=== PATIENT | female | born 1950 | race Two or more races ===

== ENCOUNTER 2020-10-23 09:44 | Inpatient (IN) | payer MEDICARE, OTHER ==
[~2020-10-23] VITALS: Ht 165.1 cm; Wt 110.2 kg
--- NOTE | 2020-10-23 09:50 | NUR ---
PT BIBRA FROM HOME TO ER BED 05 PER EMS REPORT, PT WAS FOUND BY DAUGHTER W/ AMS W/ POSSIBILITY OD TO OXYCODONE. PT WAS GIVEN NARCAN DETECTIVE CAPTAIN. MENTATION WAS IMPROVE DETECTIVE CAPTAIN. PT IS PALAUAN SPEAKING ONLY. NOTED W L ANKLE SPLINT. PT GOWNED AND PLACED ON MONITOR. AWAITING MD GARCIA.
--- NOTE | 2020-10-23 09:52 | NUR ---
DR ULLOA AT BEDSIDE FOR EVAL.
--- NOTE | 2020-10-23 09:57 | NUR ---
PER FAMILY PT UNABLE TO PROVIDE URINE AT THIS TIME.
--- NOTE | 2020-10-23 09:58 | NUR ---
FIELD OPERATIONS SUPERVISOR AT BEDSIDE FOR BLOOD DRAW.
[2020-10-23 10:07] LABS: BASOPHILS % (AUTO) 0.2 % (0.0-2.0); HEMATOCRIT 40 % (33-45); HEMOGLOBIN 13.1 g/dL (11.5-14.8); LYMPHOCYTES # (AUTO) 0.9 /CMM (0.8-4.8); LYMPHOCYTES % (AUTO) 4.8 % (20.0-44.0); MEAN CORPUSCULAR HGB CONC 33 g/dl (31.0-36.0); MEAN CORPUSCULAR VOLUME 89 fL (82-100); MONOCYTES # (AUTO) 1.6 /CMM (0.1-1.30); NEUTROPHILS # (AUTO) 16.9 /CMM (1.8-8.9); PLATELET COUNT (AUTO) 214 /CMM (150-450); RED BLOOD CELL COUNT(AUTO) 4.53 MIL/uL (4.0-5.2); WHITE BLOOD COUNT (AUTO) 19.4 K/uL (4.3-11.0)
[2020-10-23 10:17] LABS: CALCIUM, SERUM 8.4 mg/dL (8.5-10.1); CARBON DIOXIDE 18 mmol/L (21-32); CHLORIDE 100 mmol/L (98-107); GLUCOSE 190 mg/dL (74-106); POTASSIUM 5.1 mmol/L (3.5-5.1); SODIUM SERUM 135 mmol/L (136-145); UREA NITROGEN, BLOOD 57 mg/dL (7-18)
[2020-10-23 10:22] LABS: ALANINE AMINOTRANSFERASE 117 U/L (12-78); ALCOHOL, BLOOD < 3 mg/dL (0-0); ALKALINE PHOSPHATASE 74 U/L (46-116); ASPARTATE AMINOTRANSFERASE 574 U/L (15-37); BILIRUBIN,DIRECT 0.3 mg/dL (0.0-0.2); BILIRUBIN,TOTAL 0.8 mg/dL (0.2-1.0); TOTAL PROTEIN, SERUM 7.7 g/dL (6.4-8.2)
[2020-10-23 10:25] LABS: ACETAMINOPHEN 0 ug/ml (10-30)
[2020-10-23] MEDS ORDERED: IV NS 0.9% 1,000 ML IV ONE ×2 (10:30→11:30)
--- NOTE | 2020-10-23 10:43 | NUR ---
Paged Orthpedic surgeon Dr. Marshall [phone] for Peer to peer
--- NOTE | 2020-10-23 10:45 | NUR ---
MOVE SHEET SUBMITTED AND CALLED FOR BED.
--- NOTE | 2020-10-23 10:47 | NUR ---
paged Dr. Chen, machine welt butter [phone] for peer to peer
[2020-10-23 11:04] LABS: ALBUMIN 2.6 g/dL (3.4-5.0)
[2020-10-23] MEDS ORDERED: ALBU8.5H8 IH (11:13)
[2020-10-23] MEDS ORDERED: LEVO75TA7 PO (11:13)
[2020-10-23] MEDS ORDERED: DEXL60CA3 PO (11:13)
[2020-10-23] MEDS ORDERED: AZEL137S7 (11:13)
[2020-10-23] MEDS ORDERED: ACET500C4 PO (11:13)
[2020-10-23] MEDS ORDERED: OXYC10TA49 PO (11:13)
[2020-10-23] MEDS ORDERED: METO-357 PO (11:13)
[2020-10-23] MEDS ORDERED: NALO4SPR (11:13)
[2020-10-23] MEDS ORDERED: SUCR1TAB PO (11:13)
[2020-10-23] MEDS ORDERED: FLUT16SP16 (11:13)
[2020-10-23] MEDS ORDERED: FESO4TAB PO (11:13)
[2020-10-23] MEDS ORDERED: LISI40TA13 PO (11:13)
[2020-10-23] MEDS ORDERED: CHOL100062 PO (11:13)
[2020-10-23] MEDS ORDERED: ASCO-352 PO (11:13)
[2020-10-23] MEDS ORDERED: ZOLP10TA2 PO (11:13)
[2020-10-23] MEDS ORDERED: METF-440 PO (11:13)
--- NOTE | 2020-10-23 11:30 | NUR ---
pt on bed byrnes for urine collection
--- NOTE | 2020-10-23 11:39 | NUR ---
[facility] CALLED ASSISTANT INFANT TEACHER PAGED.
--- NOTE | 2020-10-23 11:57 | NUR ---
able to collect urine but very smal amount. made aware and ok to collect urine once pt have the urge and abele to.
--- NOTE | 2020-10-23 12:48 | NUR ---
PT ASSIGNED ROOM 110
--- NOTE | 2020-10-23 12:58 | NUR ---
NURSE ALFRED CALLED BACK TO IMFORM THAT PT'S ROOM IS STILL NOT AVAILABLE BECAUSE IT IS STILL BEING WAXED.
--- NOTE | 2020-10-23 12:58 | NUR ---
report given to arsen regalado for roxanna
--- NOTE | 2020-10-23 14:00 | NUR ---
RN ADMITTING NOTE RECEIVED PATIENT VIA GURNEY, TRANSFERRED INTO HOSPITAL BED, CHANGED INTO GOWN, BELONGINGS COLLECTED AND DOCUMENTED, PATIENT IS A/OX4, GAMBIAN AND SLOVENIAN SPEAKER, NST ON TELEMONITOR WITH HR OF 99, ON NC VIA 5L, TOLERATING WELL , SPO2 93-95%, RESPIRATIONS EQUAL, NO SOB NOTED, DENIES PAIN OR DISCOMFORT, L ANKLE CAST NOTED, CLEAN AND INTACT, SKIN WARM, BILATERAL PULSES PRESENT, SAFETY MEASURES IN PLACE, CALL LIGHT IN REACH, BED LOCKED, IN LOWEST POSITION, WILL CONT TO MONITOR FOR ANTONIA
--- NOTE | 2020-10-23 14:12 | NUR ---
PT TRANPORTED TO UNIT ON [facility] WITH EMT AND RN AT BEDSIDE. NAD NOTED DURING TRANSPORT.
[2020-10-23 14:30] VITALS: BP 110/67
--- NOTE | 2020-10-23 15:23 | NUR ---
PREVIOUS SURGERIES REPORTED BY PATIENT: LS SPINE SURGERY 2013 Ureteral reimplantation SURGERY RIGHT KNEE AND HIP REPLACEMENT
--- NOTE | 2020-10-23 15:54 | NUR ---
SS Consult : SS Consult requested for OD. The pt. is a 70-year old Croatian patient who was BIB daughter, Esther [phone] as pt. became increasingly confused since last night, per EMR. MISTI met with pt. and pt.s daughter Esther at bedside who translated. Per family, the pt. has a knee surgery on 10/20/2020 and was D/C to home the same day & prescribed wit Oxycodone. Per family, pt. kept complaining of pain and they believe the pt. may have accidentally taken too much pain medication. SW encouraged Esther to assist patient with medication management. Esther is agreeable. The pt. is alert & oriented x0. Pt. has flat affect & apathetic. Pt. is a poor historian. Esther stated the pt. lives at [[address] [facility] [address] tel: [phone]] with her , Jonathan. Per Esther, she is the pt.s caregiver through [employer] (8 hours/day). Per Esther, the pt.s home health is [place] [phone] cyanide case hardenerYisel. Esther is also requesting DME: a medical bed for pt. at home as pt. needs railing to assist her with getting up to use the bathroom. MISTI notified the cyanide case hardenerJennifer who will follow up with appropriate DME. MISTI provided pt. & family with the following senior resources and Addiction resources and family accepted them: ABUSE PREVENTION: ELDER ABUSE HOTLINE (30/12) ADULT PROTECTIVE SERVICES HOTLINE LONG-TERM CARE [facility] Region AREA ON AGING (HOTLINE) ADULT DAY HEALTH CARE CARE CENTERS: Private pay or Medi-caty funded adult day care [place] Adult Day Health Care [facility] , [facility] , [facility] Adult [facility] , [facility] Adult Day Health Care , [facility] Adult Day Health Care , [facility] Adult [facility] , [facility] , [place] Lu[facility] , [facility] HEALTH ASSOCIATIONS: AARP www.aarp.org ALS Association (ask for Halima) www.als.org Dominican Diabetes Association www.diabetes.org Dominican Heart Association www.heart.org Dominican Lung Association www.lungusa.org Dominican Parkinson Disease Association www.apdaparkinson.org [place] , www.redcross.org Arthritis Foundation www.arthritis.org Crohns & Colitis Foundation of Dominican www.ccfa.org/chapters/losangeles National Multiple Sclerosis Society www.nationalmssociety.org Myasthenia Gravis Foundation www.myasthenia-ca.org National Stroke Association www.stroke.org CONSERVATORSHIP & GUARDIANSHIP: ELLIOT Rashida Johnson Legal Services Center for Health Care Rights Eldercare Information and Referral Metal Forger'S Assistant [facility]: [facility] Bar Referral Service [facility] Legal Services Office of the Public Guardian [place] GRIEF AND BEREAVEMENT RESOURCES: The Gathering Place , [facility] THE HOPE Connection , [facility]ment [facility] , [place] HEARING DISORDER RESOURCES: [place] Telephone Access Program Deaf and Disabled Telecommunications Program www.ddtp.cpu.ca.gov HearRx Hearing Centers ([place]) Better Hearing Systems , [place] GLAD ([facility] Agency on Deafness) V/ TTY; Nurse Research , [facility] Hearing Foundation -low income hearing aid assistance www.cleveland clinicringfoundation.org [place] Hearing Care , Faraz HELP AT HOME CAREGIVER SUPPORT: In Home Support Services (Must have Medi-Caty to be eligible) *Ask for a list of agencies that provide services to assist with care in the home. Local Senior Centers also have listings of care providers. HOME SAFETY MODIFICATIONS AND EQUIPMENT: Senior centers have additional referrals. [place] Housing and Community Investment Dept. Handyworker Program (low income) or Visit http://hcidla.[facility].org/rve-jfcocn-xg for more information National Seating and Mobility and/or ; Forever Active www.foreverPriceSpotmed.SouthWing Stay Home Safe www.Stayhomesafe.com LIFE ALERT RESPONSE SYSTEM: AddMyBest Lifeline Services 049-174-9460 www. LifeAugustine Temperature Managementys.com Life Alert 056-738-3415 www.lifealert.SouthWing Life Station 085-360-0433 www.[place] Logication.com Safe Return 313-302-1294 www.alz.or/safereturn Cell Phones for Seniors www.Visiprise MEALS AND FOOD PROGRAMS: [place] Meals on Wheels [phone] [place] Meals on Wheels [phone] [facility] [phone] [place] to the Homebound [phone] Ken Caryl to the Homebound [phone] [facility] to the Homebound [phone] [facility] to the Homebound [phone] Ryan Laneamelia [phone] [facility] [phone] ONE Generation [phone] [facility] [phone] [facility] [phone] Meals on Wheels [phone] For all ages: $6.85/ meal w side. Delivered M-F from 10 am-1pm. Application and payment is done over the phone. Frozen meals available for weekends. HuTerra Food [facility] [phone] [facility] Airborne And Air Delivery Specialist [phone] [facility] [phone] [facility]- Brown bag lunches [phone] [facility] [phone] MEAL/GROCERY DELIVERY PROGRAMS: [facility] Gourmet Meals [phone]- [facility] [phone]- [facility] Magic Kitchen [phone] Moms Meals [phone] (ask [place] for Discount Select grocery stores may provide delivery. MEDICAL INSURANCE SUPPORT SERVICES: Center for Health Care Rights [phone] Health Insurance Counseling/Advocacy Programs (HICAP)-Must have Medicare. Offers counseling for Medi-Caty eligibility [phone] Department of Public Airborne And Air Delivery Specialist [phone] www.cs.ca.gov Medicare 329-271-6536 www.socialsecurity.org Social Security [phone] SENIOR ACTIVITY PROGRAMS: *Contact a local senior center, adult school, recreation facility or community college for education, fitness, recreation, and social programs. Aquatic Therapy and Adapted Exercise programs through [facility] [phone] [phone] www.kaiser foundation hospital/encore H2U- Senior Friends [phone] [place] Senior Programs [phone] www.oasisnet.org Suddenly 65 www.LegalReach SENIOR CENTERS: [facility] Senior [facility] [phone] [place] And Morehouse ParishesRyan [phone] [facility] [phone] [facility] Innovation CenterMarcial [phone] [facility] [phone] [facility] [phone] [facility] [phone] [facility] [phone] eRyna GenerationPage [facility] [phone] [facility] [phone] [facility] [phone] [facility] [phone] [facility] [phone] TRANSPORTATION: Local [facility] may have applications for transportation programs and additional resources. ACCESS Services [phone] Transportation for seniors and disabled persons 7 days a week requiring 254 hr. advance reservation. Must apply and register for program dano eligible. Boutique Window [phone] or [phone] Transportation for seniors and persons with ADA card/metro disabled card in the [facility]. M-F only. Must register for services. ONE GENERATION 047-228-9061 Serves 65 years + in conjunction with ConnectM Technology Solutions program. Must be registered with both programs. A to B Transport [phone] Provides wheelchair/gurney van service. Adult Medical Transport [phone] Accepts Medi-caty with prior authorization. Care Van [phone] Provides wheelchair Transport. [facility] Wide Transportation [phone] Provides gurney service Gentle [facility] [phone] Gurney Transport. [facility] Town Transportation [phone] wheelchair & gurney transport D Transportation [phone] wheelchair & gurney transport [place] Non-Emergency Transport [phone] wheelchair & gurney transport [facility] [phone] Short Term Transportation primarily for adults with disabilities on social security income. Nominal fee may apply and a reservation is required. City Cab [phone] or [phone] [place] [phone] 211 [place] Referral Services -[phone] For additional programs & services VETERANS RESOURCES: Submissions for Aid and Attendance should be done directly to [facility] VA office locatd at : [facility] [address] [facility]. [facility] [phone] National Caregiver Support Line [phone] [facility] Veterans Services Field Office [phone] [place] Department of Affairs [phone] Pension Information [phone] ADDICTION RESOURCES For Drugs and Alcohol [facility] Substance Abuse Helpline(SAS)-[facility] Outpatient treatment, residential treatment, recovery support for youth and adults Action Family Counseling www.WorldVizfaSixteen Eighteen Designlycartandseek [facility] Teen programs for drug/alcohol education and support [facility]. Program for adults, sliding scale provides support and education EdenCouchOne www.JumpMusic.org [place]; Outpatient/residential treatment programs; transition to sober living Cri-Help www.cri-help.org [place]; Outpatient and residential treatment programs; transition to sober living I-ADA Inter Agency Drug Abuse Recovery Ryan Moran; Outpatient education and supportive programs for teens and adults [place] Womens Recovery www.oasiswomensrecovery.org [place]; Residential treatment and work program for females only [facility] www.Mindlikesalliancehealth [facility].org [place]: Outpatient/residential treatment program for teens and young adults [facility] www.[facility].org Tarzana Detox, inpatient, outpatient for adults and youth [facility] [place]; Outpatient programs and referrals to community residential programs. Alcoholics Anonymous -sfv information and meeting and schedules www.aa-intergroup.org Ro-Xivq-Ptuhwuc https://al-anosixto.org/ [place] support groups for family of alcoholics. Marijuana Anonymous www.madistrict6.org -SFV listing of meetings Narcotics Anonymous www.na.org SOBER LIVING RESOURCES The Sober Living Network www.soberhousing.W.S.C. Sports A non-profit agency that provides resources to recovery and sober living homes throughout [place], [place], [facility] Mens Sober Living Homes: A Work in Progress, Prateek [facility] Recovery Advocates, Tarpley [facility] Womens Sober Living Homes: [facility] x [phone] My New Beginning, [place] [facility] [place] Coed Sober Living Homes: [place] [facility] Counseling--Outpatient Kulm Counseling Crimora [address] [facility] [place] [address] (Specializes in in-depth psychotherapy for emotional distress: anxiety, depression, interpersonal conflicts, life transitions, childhood abuse) Community [facility] [address] [place] [address] (Assist with solving problem marital difficulties, separation & divorce, aging parents, & grief, chronic & terminal illness) Family [facility]ing Center [address] [place] [address] (Deal with loss & grief, anxiety, marital difficulties) Homebound/Mental Health Services [address] [facility] [address] [place] [address] (Provide in-home mental services to people who are incapable of leaving their homes) Organization for Needs of the Elderly Senior Service/Resource Center [address] [place] [address] [facility] [address] [place], [place] [phone] PSYCHIATRIC OUTPATIENT SERVICES [facility] Partial Hospitalization and Intensive Outpatient Program (Managed Care and Carmona Only)[address] [facility]. [facility] [phone] [facility] Partial Hospitalization and Outpatient [address]ys[address] [place], [place] [phone] [facility] Partial Hospitalization and Outpatient Zcujaey[address] [place], [place] [phone] [facility] Gba[address] [facility]. [address] [place], [place] [phone] [facility] Partial Hospitalization and Outpatient Lobamas54848 [facility] State HospitalameliaGRANDIN, [phone] Crisis and Hotline Telephone Numbers 24-Hour service unless stated [place] Crisis Hotlines: [facility] Mental Health/Crisis Line........[phone] Suicide Prevention Center (24 Hours).......[phone] Suicide Prevention Crisis Center.......[phone] (24 Hours) Assaults Against Women Hotline.........396.671.6595 (24 Hours -- [facility]) Women and Children Crisis Long Term...........[phone] (24 Hours) Child Abuse Hotline............214.425.8539 [facility] of Childrens Services Rape Treatment Center (24 Hours)..........[phone] Alcoholics Anonymous (24 Hours)..........[phone] Cocaine Anonymous (24 Hours)............[phone] Narcotics Anonymous (24 Hours)..........[phone] ANA LANDIN [facility] [address] [place] [address] Mental Health Services Dana Barboza [address] [place] [address] Services: Outpatient therapy for children, teens, young adults, adults, older adults, and families; Psychiatric services, medication support Crisis and Hotline Telephone Numbers 24-Hour service unless stated [place] Crisis Hotlines: AVOS Systems Fl. Mental Health/Crisis Line........[phone] Suicide Prevention Center (24 Hours).......[phone] Suicide Prevention Crisis Center.......[phone] (24 Hours) Alcoholics Anonymous (24 Hours)..........[phone] [place] Crisis Hotlines: Alcohol and Drug Helpline - Provides referrals to local facilities where adolescents and adults can seek help. Brief intervention. [facility] Helpline National [place] for the Mentally Ill 2-171-473-ABDULAZIZ National Youth Crisis Hotline [place] Mental Health Assn. Provides free information on specific disorders, referral directory to mental health providers, national directory of local mental health associations (M-F, 9-5 EST) National [place] of Mental Health Information Line: Provide sinformation and literature on mental illness by disorder-for professionals and general public.
[2020-10-23 16:00] VITALS: BP 111/59
[2020-10-23] MEDS ORDERED: HYDROCODONE/APAP 5/325MG TABLET PO PRN (18:30)
[2020-10-23] MEDS ORDERED: ALBUTEROL SULFATE INH 18 GM HFA.AER.AD IH PRN (18:30)
[2020-10-23] MEDS ORDERED: ONDANSETRON HCL/PF 4 MG/2 ML VIAL IVP PRN (18:30)
[2020-10-23] MEDS ORDERED: AZELASTINE NASAL SPRAY 30 ML BOTTLE NS PRN (18:30)
[2020-10-23] MEDS ORDERED: Z GUARD REMEDY 2 OZ OINT TP PRN (18:30)
[2020-10-23] MEDS ORDERED: MAG HYDROX/AL HYDROX/SIMETH 30 ML UDC PO PRN (18:30)
[2020-10-23] MEDS ORDERED: MAGNESIUM HYDROXIDE 30 ML UDC PO PRN (18:30)
[2020-10-23] MEDS ORDERED: FLUTICASONE PROPIONATE 16 GM BOTTLE NS PRN (18:30)
[2020-10-23] MEDS ORDERED: ZOLPIDEM TARTRATE 10 MG TABLET PO PRN (18:30)
[2020-10-23] MEDS: IV NS 0.9% 1,000 ML IV PRN (18:37)
--- NOTE | 2020-10-23 18:55 | NUR ---
RN CLOSING NOTES PATIENT RESTING COMFORTABLY , ON 4L OF O2, SPO2 97%, RESP EVEN AND UNLABORED, PROVIDED WITH INSTRUCTIONS, IV FLUIDS STARTED @75CC/HR , TOLERATING WELL, ADMITTING ORDERS ACKNOWLEDGED, SAFETY PRECAUTIONS IN PLACE, WILL ENDORSE TO OM SHIFT RN FOR ANTONIA
[2020-10-23] MEDS ORDERED: DEXTROSE 50%-WATER 50 ML DISP.SYRIN IV PRN (19:00)
--- NOTE | 2020-10-23 19:28 | NUR ---
daughter Manuela took patient's belongings with her (jacket and skirt)
--- NOTE | 2020-10-23 19:45 | NUR ---
RN NOTE PATIENT AWAKE AND RESPONSIVE, ABLE TO MAKE NEEDS KNOWN. A/OX4. ON O2 4LPM VIA NASAL CANNULA, O2 SAT 97%. LEFT AC #18 PATENT AND INTACT RUNNING IVF FLUIDS. NO S/S OF INFILTRATION. BED LOCKED AND IN LOWEST POSITION WITH SIDE RAILS UP X2. CALL LIGHT WITHIN REACH. ALL NEEDS ANTICIPATED.
[2020-10-23 20:00] VITALS: BP 133/71
[2020-10-23] MEDS: CEFTRIAXONE 1 G in IV D5W 50 ML IV SCH (20:21)
[2020-10-23] MEDS: BLOOD SUGAR DIAGNOSTIC 1 EACH STRIP IN SCH (21:48)
[2020-10-23] MEDS: INSULIN REGULAR, HUMAN 100 UNIT/ML 3 ML VIAL SQ PRN (21:48)
[2020-10-24 04:00] VITALS: BP 115/72
[2020-10-24] MEDS: ACETAMINOPHEN 325 MG TABLET PO PRN (04:19)
--- NOTE | 2020-10-24 04:25 | NUR ---
PATIENT WITH TEMP 100.3 ADMINISTERED TYLENOL PRN ORDERED. COOLING MEASURES RENDERED. WILL CONTINUE TO MONITOR.
[2020-10-24 06:33] LABS: BASOPHILS % (AUTO) 0.1 % (0.0-2.0); EOSINOPHILS % (AUTO) 0.3 % (0.0-6.0); HEMATOCRIT 35 % (33-45); HEMOGLOBIN 11.2 g/dL (11.5-14.8); LYMPHOCYTES # (AUTO) 1.2 /CMM (0.8-4.8); LYMPHOCYTES % (AUTO) 7.3 % (20.0-44.0); MEAN CORPUSCULAR HGB CONC 32 g/dl (31.0-36.0); MEAN CORPUSCULAR VOLUME 90 fL (82-100); MONOCYTES # (AUTO) 1.6 /CMM (0.1-1.30); MONOCYTES % (AUTO) 9.9 % (2.0-12.0); NEUTROPHILS # (AUTO) 13.2 /CMM (1.8-8.9); NEUTROPHILS % (AUTO) 82.4 % (43.0-81.0); PLATELET COUNT (AUTO) 208 /CMM (150-450); RED BLOOD CELL COUNT(AUTO) 3.91 MIL/uL (4.0-5.2)
--- NOTE | 2020-10-24 06:53 | NUR ---
RN NOTE PATIENT A/OX4. ON O2 4LPM VIA NASAL CANNULA, O2 SAT 100%. LEFT AC #18 PATENT AND INTACT RUNNING IV NS @ 75ML/HR. NO S/S OF INFILTRATION. TEMP AT THIS TIME 98.6. ALL DUE MEDS GIVEN ORDERED. BED LOCKED AND IN LOWEST POSITION WITH SIDE RAILS UP X2. CALL LIGHT WITHIN REACH. WILL ENDORSE TO AM SHIFT.
[2020-10-24 06:54] LABS: ALBUMIN 2.1 g/dL (3.4-5.0); BILIRUBIN,TOTAL 0.3 mg/dL (0.2-1.0); CALCIUM, SERUM 7.9 mg/dL (8.5-10.1); CREATININE 4.6 mg/dL (0.6-1.3); MAGNESIUM 2.3 mg/dL (1.8-2.4); PHOSPHORUS 4.4 mg/dL (2.5-4.9); TOTAL PROTEIN, SERUM 6.9 g/dL (6.4-8.2)
[2020-10-24 07:06] LABS: THYROID STIMULATING HORMONE 2.957 uIU/mL (0.358-3.74)
[2020-10-24] MEDS: BLOOD SUGAR DIAGNOSTIC 1 EACH STRIP IN SCH ×4 (07:30→22:10)
--- NOTE | 2020-10-24 07:30 | NUR ---
RN OPENING NOTE PARAGUAYAN/BULGARIAN SPEAKING PT SEMIFOWLER'S IN BED ON 4L NC SPO2 95%, SO SIGNS OF SOB OR RESP DISTRESS A/Ox2 PER DAUGHTER CURRENTLY AT BEDSIDE. PT ON O2 4LPM NASAL CANNULA, SPO2 95%. LAC #18 PATENT AND INTACT RUNNING NS @ 75ML/HR. NO S/S OF INFILTRATION/INFECTION. ALL PT SAFETY PRECAUTIONS IN PLACE, BED LOCKED AND IN LOWEST POSITION WITH SIDE RAILS UP X2. CALL LIGHT WITHIN REACH, BED ALARM ON. WILL CONT TO MONITOR Addendum: 10/24/20 at 1046 by JAQUELIN NOLAN RN BOYER CATH DRAINING CLEAR SAVAGE URINE TO GRAVITY
[2020-10-24 08:00] VITALS: BP 124/66
[2020-10-24] MEDS: LEVOTHYROXINE SODIUM 75 MCG TABLET PO SCH (08:14)
[2020-10-24] MEDS: PANTOPRAZOLE 40 MG TABLET.DR PO SCH (08:14)
[2020-10-24] MEDS: SUCRALFATE 1 G TABLET PO SCH ×2 (08:14→18:18)
[2020-10-24] MEDS: ASCORBIC ACID 500 MG TABLET PO SCH (08:14)
[2020-10-24] MEDS: CHOLECALCIFEROL 1,000 UNIT TABLET (VIT D3) PO SCH (08:14)
[2020-10-24] MEDS: METOPROLOL SUCCINATE 50 MG TAB.SR.24H PO SCH (08:15)
[2020-10-24] MEDS: INSULIN REGULAR, HUMAN 100 UNIT/ML 3 ML VIAL SQ PRN ×2 (08:50→22:11)
[2020-10-24] MEDS: IV NS 0.9% 1,000 ML IV PRN ×2 (09:40→15:50)
[2020-10-24] MEDS: HEPARIN SODIUM, PORCINE 5000 UNITS/1 ML VIAL SQ SCH ×2 (10:16→20:51)
[2020-10-24 10:52] LABS: ABG BASE EXCESS -7.5 mmol/L; ABG OXYGEN SATURATION 96.7 % (92.0-98.5); ABG PCO2 32.3 mmHg (35.0-45.0); ABG PH 7.343 (7.350-7.450); ABG PO2 87.5 mmHg (75.0-100.0); AaDO2 131.7 mmHg; COHb 0.5 % (0.5-1.5); MetHb 0.1 % (0.0-1.5); O2Hb 96.1 % (94.0-97.0); SITE, ABG Right Radial; VENT MODE, BG nasal cannula
[2020-10-24 12:02] LABS: BILIRUBIN,URINE MODERATE (NEGATIVE); COLOR,URINE YELLOW (YELLOW); LEUKOCYTE ESTERASE ,URINE MODERATE (NEGATIVE); NITRITE, URINE NEGATIVE (NEGATIVE); PROTEIN,URINE 100 mg/dl (NEGATIVE); UGLUCOSE NEGATIVE (NEGATIVE); URINE TOTAL PROTEIN 190.7 mg/dL (0-11.9); UROBILINOGEN,URINE 0.2 EU/dL (0.2)
[2020-10-24 12:29] LABS: BACTERIA,URINE Moderate /HPF (None Seen); SQUAMOUS EPITHELIAL CELL,UR Few /HPF (None Seen)
[2020-10-24 12:30] LABS: URINE AMORPHOUS URATE Moderate /HPF (None Seen)
[2020-10-24 12:31] LABS: WBC,URINE 51-80 /HPF (0-3)
[2020-10-24 12:35] LABS: CREATININE, URINE 389.9 MG/DL (30.0-125.0)
[2020-10-24 16:00] VITALS: BP 117/71
--- NOTE | 2020-10-24 18:39 | NUR ---
RN NOTE DR HARRINGTON INFORMED OF PT'S F/C OUTPUT TODAY OF 200cc. PT'S BLADDER NOT DISTENDED AND IS NON-TENDER. WILL ENDORSE TO ONCOMING NURSE TO KEEP AN EYE
--- NOTE | 2020-10-24 19:00 | NUR ---
RN CLOSING NOTE NO CHANGES TO PT DURING SHIFT, PT IS STABLE, BREATHING NC 4L, SPO2 99%, NO SIGNS OF RESP DISTRESS OR SOB. ALL PT SAFETY PRECAUTIONS IN PLACE, WILL ENDORSE ANTONIA TO ONCOMING RN
--- NOTE | 2020-10-24 19:30 | NUR ---
RN NOTE PT ALERT AND VERBALLY RESPONSIVE. PT DAUGHTER AUBRIE AT BEDSIDE. PT DENIES ANY PAIN AT THIS TIME. NO DISTRESS NOTED. IV ON LAC PATENT AND INTACT. NS RUNNING AT 100ML/HR. WITH BOYER CATH IN PLACE. LEFT LEG CAST INTACT, CLEAN AND DRY. ALL SAFETY MEASURES IMPLEMENTED PER PROTOCOL. CALL LIGHT WITHIN REACH BED LOCKED IN LOWEST POSITION.
[2020-10-24 20:00] VITALS: BP 101/44
[2020-10-24] MEDS: CEFTRIAXONE 1 G in IV D5W 50 ML IV SCH (20:48)
[2020-10-25] MEDS: IV NS 0.9% 1,000 ML IV PRN ×3 (02:51→20:53)
[2020-10-25 04:00] VITALS: BP 128/68
[2020-10-25 06:33] LABS: BASOPHILS % (AUTO) 0.2 % (0.0-2.0); EOSINOPHILS % (AUTO) 1.3 % (0.0-6.0); HEMATOCRIT 34 % (33-45); HEMOGLOBIN 11.2 g/dL (11.5-14.8); LYMPHOCYTES # (AUTO) 0.9 /CMM (0.8-4.8); LYMPHOCYTES % (AUTO) 7.7 % (20.0-44.0); MEAN CORPUSCULAR HGB CONC 33 g/dl (31.0-36.0); MEAN CORPUSCULAR VOLUME 89 fL (82-100); MONOCYTES # (AUTO) 0.9 /CMM (0.1-1.30); MONOCYTES % (AUTO) 7.6 % (2.0-12.0); NEUTROPHILS # (AUTO) 9.9 /CMM (1.8-8.9); NEUTROPHILS % (AUTO) 83.2 % (43.0-81.0); PLATELET COUNT (AUTO) 201 /CMM (150-450); RED BLOOD CELL COUNT(AUTO) 3.84 MIL/uL (4.0-5.2); WHITE BLOOD COUNT (AUTO) 11.9 K/uL (4.3-11.0)
--- NOTE | 2020-10-25 06:43 | NUR ---
RN CLOSING NOTES PT SLEEPING, AROUSES EASILY. NO CHANGES IN LOC NOTED. TOLERATING O2 THERAPY OF 4L. NO SIGNS OF DISTRESS NOTED. DENIES ANY PAIN OR SOB. IV REMAIN PATENT AND INTACT, CONTINUE ON IVF OF NS. NO S/SX OF INFILTRATION NOTED. BOYER IN PLACE, DRAINED 300 CC OF URINE. WILL ENDORSE TO NEXT SHIFT NURSE FOR ANTONIA.
[2020-10-25 07:07] LABS: PTH, INTACT 138 pg/mL (15-65)
--- NOTE | 2020-10-25 07:30 | NUR ---
RN OPENING NOTE PATIENT PRESENT IN BED, AWAKE, A/OX4, ON 4 L VIA NC , TOLERATING WELL , SPO2 93-95%, RESPIRATIONS EQUAL, NO SOB NOTED, DENIES PAIN OR DISCOMFORT, L ANKLE CAST NOTED, CLEAN AND INTACT, SKIN WARM, BILATERAL PULSES PRESENT, SAFETY MEASURES IN PLACE, CALL LIGHT IN REACH, BED LOCKED, IN LOWEST POSITION, WILL CONT TO MONITOR FOR ANTONIA
[2020-10-25 07:33] LABS: CALCIUM, SERUM 7.6 mg/dL (8.5-10.1); CREATININE 5.3 mg/dL (0.6-1.3); POTASSIUM 4.4 mmol/L (3.5-5.1)
[2020-10-25] MEDS: BLOOD SUGAR DIAGNOSTIC 1 EACH STRIP IN SCH ×4 (08:05→21:59)
[2020-10-25 08:06] LABS: COMPLEMENT C3, SERUM 163 mg/dL (82-167); COMPLEMENT C4, SERUM 26 mg/dL (12-38); CREATININE KINASE (CK),MB 25.9 ng/mL (0.0-5.3)
[2020-10-25] MEDS: INSULIN REGULAR, HUMAN 100 UNIT/ML 3 ML VIAL SQ PRN ×2 (08:07→17:05)
[2020-10-25] MEDS: CHOLECALCIFEROL 1,000 UNIT TABLET (VIT D3) PO SCH (08:16)
[2020-10-25] MEDS: LEVOTHYROXINE SODIUM 75 MCG TABLET PO SCH (08:17)
[2020-10-25] MEDS: SUCRALFATE 1 G TABLET PO SCH ×2 (08:17→16:42)
[2020-10-25] MEDS: PANTOPRAZOLE 40 MG TABLET.DR PO SCH (08:17)
[2020-10-25] MEDS: METOPROLOL SUCCINATE 50 MG TAB.SR.24H PO SCH (08:17)
[2020-10-25] MEDS: ASCORBIC ACID 500 MG TABLET PO SCH (08:18)
[2020-10-25] MEDS: HEPARIN SODIUM, PORCINE 5000 UNITS/1 ML VIAL SQ SCH ×2 (08:20→21:04)
[2020-10-25 09:08] LABS: *ANA ANTI-CENTROMERE B AB <0.2 AI (0.0-0.9); *ANA ANTI-DNA(DS) AB, QN 5 IU/mL (0-9); *ANA ANTI-JO-1 <0.2 AI (0.0-0.9); *ANA ANTICHROMATIN ANTIBODY <0.2 AI (0.0-0.9); *ANA RNP ANTIBODIES 0.2 AI (0.0-0.9); *ANA SJOGREN'S ANTI-SS-A <0.2 AI (0.0-0.9); *ANA SJOGREN'S ANTI-SS-B <0.2 AI (0.0-0.9); *ANAANTI-SCLERODERMA-70 AB 0.7 AI (0.0-0.9); *ANASMITH AB <0.2 AI (0.0-0.9)
[2020-10-25 10:07] LABS: *SPE A/G RATIO 0.5 (0.7-1.7); *SPE ALPHA-1-GLOBULIN 0.6 g/dL (0.0-0.4); *SPE ALPHA-2-GLOBULIN 1.2 g/dL (0.4-1.0); *SPE BETA GLOBULIN 0.9 g/dL (0.7-1.3); *SPE GLOBULIN, TOTAL 3.7 g/dL (2.2-3.9); *SPE M-SPIKE Not Observed g/dL (Not Observed); *SPEGAMMA GLOBULIN 0.9 g/dL (0.4-1.8)
[2020-10-25 12:00] VITALS: BP 122/69
[2020-10-25 16:00] VITALS: BP 122/58
--- NOTE | 2020-10-25 18:39 | NUR ---
RN CLOSING NOTES PATIENT RESTING COMFORTABLY , ON 4L OF O2, SPO2 98%, RESP EVEN AND UNLABORED, PROVIDED WITH INSTRUCTIONS, SAFETY PRECAUTIONS IN PLACE, WILL ENDORSE TO OM SHIFT RN FOR ANTONIA
--- NOTE | 2020-10-25 19:30 | NUR ---
[place] RN OPENING NOTES: RECEIVED PATIENT IN BED, AWAKE. A/O X3. NO S/S OF DISTRESS NOTED. CALL LIGHT WITHIN REACH. BED ALARM ON. BED IN LOWEST AND LOCKED POSITION. HEAD OF BED ELEVATED AT 35 DEGREES AT ALL TIMES. WITH LEFT LOWER LEG DRESSING CLEAN,DRY AND INTACT.WITH O2 AT 4L/MIN NASAL CANNULA.WITH BOYER CATHETER INTACT, DRAINING CLEAR LIGHT YELLOW URINE OUTPUT.
[2020-10-25] MEDS: CEFTRIAXONE 1 G in IV D5W 50 ML IV SCH (19:56)
[2020-10-25 20:00] VITALS: BP_SYST 101; BP_SYST 130; BP_DIAS 44; BP_DIAS 67
--- NOTE | 2020-10-25 20:37 | NUR ---
DAUGHTER CAME AND BROUGHT FOOD FOR THE PATIENT, FED THE PATIENT AND ATE ONLY A LITTLE BIT.
--- NOTE | 2020-10-25 21:59 | NUR ---
blood sugar [id number]=[id number] no insulin coverage needed.
[2020-10-26 04:00] VITALS: BP 123/63
--- NOTE | 2020-10-26 04:18 | NUR ---
REPORTS GIVEN TO AMBER LMI for roxanna.
--- NOTE | 2020-10-26 04:20 | NUR ---
RECEIVED REPORT FROM GORAN FOR [facility]. PATIENT IN BED RESTING COMFORTABLY. ON O2 4LPM VIA NASAL CANNULA. NO S/S OF DISTRESS. CALL LIGHT WITHIN REACH. ALL NEEDS ANTICIPATED.
[2020-10-26] MEDS: IV NS 0.9% 1,000 ML IV PRN ×2 (05:27→12:29)
[2020-10-26 06:37] LABS: BASOPHILS % (AUTO) 0.2 % (0.0-2.0); EOSINOPHILS % (AUTO) 0.9 % (0.0-6.0); HEMATOCRIT 35 % (33-45); HEMOGLOBIN 11.5 g/dL (11.5-14.8); LYMPHOCYTES # (AUTO) 0.6 /CMM (0.8-4.8); MEAN CORPUSCULAR HGB CONC 33 g/dl (31.0-36.0); MEAN CORPUSCULAR VOLUME 90 fL (82-100); MONOCYTES # (AUTO) 0.8 /CMM (0.1-1.30); MONOCYTES % (AUTO) 8.1 % (2.0-12.0); NEUTROPHILS # (AUTO) 8.9 /CMM (1.8-8.9); NEUTROPHILS % (AUTO) 84.8 % (43.0-81.0); PLATELET COUNT (AUTO) 220 /CMM (150-450); RED BLOOD CELL COUNT(AUTO) 3.89 MIL/uL (4.0-5.2); WHITE BLOOD COUNT (AUTO) 10.5 K/uL (4.3-11.0)
--- NOTE | 2020-10-26 06:39 | NUR ---
RN NOTE PATIENT IN BED ALERT AND ORIENTED X4. ON 4LPM VIA NASAL CANNULA, O2 SAT 100%. NO S/S OF DISTRESS. NOTED WITH LEFT LEG CAST, CLEAN AND INTACT. IV ACCESS ON LEFT AC #18 RUNNING NS 0.9% @ 125ML/HR, NO S/S OF INFILTRATION. BED LOCKED AND IN LOWEST POSITION WITH SIDE RAILS UP X2. CALL LIGHT WITHIN REACH. WILL ENDORSE TO AM SHIFT.
[2020-10-26 06:58] LABS: CALCIUM, SERUM 7.9 mg/dL (8.5-10.1); MAGNESIUM 2.4 mg/dL (1.8-2.4); PHOSPHORUS 6.8 mg/dL (2.5-4.9); POTASSIUM 4.9 mmol/L (3.5-5.1)
--- NOTE | 2020-10-26 07:41 | NUR ---
MS/RN OPENING NOTES RECEIVED PATIENT ON BED AWAKE, ALERT AND ORIENTED X 4 ST LUCIAN SPEAKING. PATIENT IN ON OXYGEN AT 4L VIA NASAL CANNULA SATURATING WELL. PATIENT IN NO APPARENT RESPIRATORY DISTRESS NOTED. NO COMPLAINED OF PAIN AT THIS TIME. WILL CONTINUE TO MONITOR.
[2020-10-26] MEDS: BLOOD SUGAR DIAGNOSTIC 1 EACH STRIP IN SCH ×4 (08:08→21:33)
[2020-10-26] MEDS: SUCRALFATE 1 G TABLET PO SCH ×2 (08:08→17:12)
[2020-10-26] MEDS: LEVOTHYROXINE SODIUM 75 MCG TABLET PO SCH (08:10)
[2020-10-26] MEDS: PANTOPRAZOLE 40 MG TABLET.DR PO SCH (08:10)
[2020-10-26] MEDS: CHOLECALCIFEROL 1,000 UNIT TABLET (VIT D3) PO SCH (08:11)
[2020-10-26] MEDS: ASCORBIC ACID 500 MG TABLET PO SCH (08:11)
[2020-10-26] MEDS: METOPROLOL SUCCINATE 50 MG TAB.SR.24H PO SCH (08:41)
[2020-10-26] MEDS: HEPARIN SODIUM, PORCINE 5000 UNITS/1 ML VIAL SQ SCH ×2 (08:42→20:58)
[2020-10-26 16:00] VITALS: BP_SYST 120; BP_SYST 152; BP_DIAS 83; BP_DIAS 85
--- NOTE | 2020-10-26 18:54 | NUR ---
MS/RN CLOSING NOTES PATIENT ON BED AWAKE, ALERT AND ORIENTED X 4 MALDIVIAN SPEAKING. PATIENT IS ON 4L OXYGEN VIA NASAL CANNULA SATURATION 100%. PATIENT IN NO APPARENT RESPIRATORY DISTRESS NOTED. NO COMPLAINED OF PAIN AT THIS TIME. IV ACCESS AT LEFT AC # 18G WITH IV FLUID OF NS 1L AT 75 ML/HR ON AND INFUSING WELL. SEEN AND EXAMINED BY MD WITH ORDERS MADE AND CARRIED OUT. ALL DUE MEDICATIONS WAS GIVEN. ALL NEEDS WAS ATTENDED. WILL ENDORSED TO NIGHT FOR ANTONIA.
[2020-10-26 20:00] VITALS: BP 133/59
[2020-10-26] MEDS: CEFTRIAXONE 1 G in IV D5W 50 ML IV SCH (20:50)
[2020-10-26] MEDS: INSULIN REGULAR, HUMAN 100 UNIT/ML 3 ML VIAL SQ PRN (21:32)
[2020-10-27] MEDS: IV NS 0.9% 1,000 ML IV PRN ×2 (03:07→05:44)
[2020-10-27 04:00] VITALS: BP_SYST 127; BP_SYST 133; BP_DIAS 49; BP_DIAS 59
--- NOTE | 2020-10-27 06:56 | NUR ---
RN notes Alert and oriented, verbally able to communicate needs. Cymro, knows very little estonian. unable to ambulatory, s/p ankle surgery. On 2lpm via nasal cannula, well tolerated. No significant change of condition. No complaint of pain or discomfort except during repositioning. Kept clean and dry. Will endorse to next shift for continuity of care.
--- NOTE | 2020-10-27 07:30 | NUR ---
MS/RN OPENING NOTES RECEIVED PATIENT ON BED AWAKE, ALERT AND ORIENTED X 4 PALESTINIAN SPEAKING. PATIENT IN ON OXYGEN AT 2L VIA NASAL CANNULA SATURATING WELL. PATIENT IN NO APPARENT RESPIRATORY DISTRESS NOTED. NO COMPLAINED OF PAIN AT THIS TIME. WILL CONTINUE TO MONITOR.
[2020-10-27] MEDS: SUCRALFATE 1 G TABLET PO SCH ×2 (07:54→17:55)
[2020-10-27] MEDS: LEVOTHYROXINE SODIUM 75 MCG TABLET PO SCH (07:54)
[2020-10-27] MEDS: PANTOPRAZOLE 40 MG TABLET.DR PO SCH (07:54)
[2020-10-27] MEDS: BLOOD SUGAR DIAGNOSTIC 1 EACH STRIP IN SCH ×4 (07:54→21:19)
[2020-10-27 08:00] VITALS: BP 120/55
[2020-10-27 08:54] LABS: BASOPHILS # (AUTO) 0.1 /CMM (0.0-0.2); BASOPHILS % (AUTO) 0.5 % (0.0-2.0); EOSINOPHILS % (AUTO) 1.6 % (0.0-6.0); HEMATOCRIT 38 % (33-45); HEMOGLOBIN 11.8 g/dL (11.5-14.8); LYMPHOCYTES # (AUTO) 1.2 /CMM (0.8-4.8); LYMPHOCYTES % (AUTO) 7.7 % (20.0-44.0); MEAN CORPUSCULAR HGB CONC 31 g/dl (31.0-36.0); MEAN CORPUSCULAR VOLUME 92 fL (82-100); MONOCYTES # (AUTO) 1.1 /CMM (0.1-1.30); MONOCYTES % (AUTO) 7.1 % (2.0-12.0); NEUTROPHILS # (AUTO) 12.7 /CMM (1.8-8.9); NEUTROPHILS % (AUTO) 83.1 % (43.0-81.0); PLATELET COUNT (AUTO) 273 /CMM (150-450); RED BLOOD CELL COUNT(AUTO) 4.11 MIL/uL (4.0-5.2); WHITE BLOOD COUNT (AUTO) 15.2 K/uL (4.3-11.0)
[2020-10-27 09:13] LABS: CALCIUM, SERUM 8.3 mg/dL (8.5-10.1); CREATININE 4.5 mg/dL (0.6-1.3); MAGNESIUM 2.2 mg/dL (1.8-2.4); PHOSPHORUS 6.1 mg/dL (2.5-4.9); POTASSIUM 4.4 mmol/L (3.5-5.1)
--- NOTE | 2020-10-27 09:30 | NUR ---
RN NOTES DUE MEDS GIVEN
[2020-10-27] MEDS ORDERED: MEROPENEM 1 G in IV NS 0.9% 100 ML IV ONE (10:00)
[2020-10-27] MEDS: ASCORBIC ACID 500 MG TABLET PO SCH (10:10)
[2020-10-27] MEDS: CHOLECALCIFEROL 1,000 UNIT TABLET (VIT D3) PO SCH (10:10)
[2020-10-27] MEDS: METOPROLOL SUCCINATE 50 MG TAB.SR.24H PO SCH (10:11)
[2020-10-27] MEDS: HEPARIN SODIUM, PORCINE 5000 UNITS/1 ML VIAL SQ SCH ×2 (10:14→21:11)
--- NOTE | 2020-10-27 10:20 | NUR ---
RN NOTES PATIENT ACCIDENTALLY DROPPED ALL HER PILLS ON THE FLOOR. REPLACED AND PULLED OUT FROM THE OMNICELL - VIT C, VIT D AND TOPROL XL.
--- NOTE | 2020-10-27 11:38 | NUR ---
RN NOTES JHON ALVARADO AT BEDSIDE FOR HD CATH PLACEMENT
[2020-10-27] MEDS: INSULIN REGULAR, HUMAN 100 UNIT/ML 3 ML VIAL SQ PRN ×2 (12:52→21:21)
[2020-10-27 16:00] VITALS: BP 98/52
--- NOTE | 2020-10-27 19:00 | NUR ---
RN NOTES PATIENT RESTING IN BED, AOX 4, ON 2L NASAL CANULA, NOT IN ANY DISTRESS, NO SOB, DENIES PAIN, WITH HD CATH IN PLACE TO RIGHT NECK, LEFT AC G 18 FLUSHES WELL, SITE CLEAR. BOYER CATH IN PLACE, 2000 ML OUTPUT. CAST IN PLACE TO LEFT LEG. ALL NEEDS MET. PATIENT FOR HD C/O RODOLFO ACCORDING TO [facility] NURSE. PM CARE DONE, NO OTHER SIGNIFICANT CHANGE IN CONDITION. ENDORSED TO NEX SHIFT FOR ANTONIA.
--- NOTE | 2020-10-27 19:46 | NUR ---
MS RN NOTES RECEIVED PTS IN BED AWAKE A/O X4 IN STABLE CONDITION , TRANSFER PTS TO [address] [facility] ROOM 310 , REPORT GIVEN TO PAOLA CLARK FOR CONTINUITY OF CARE
[2020-10-27 20:00] VITALS: BP 122/52
[2020-10-27] MEDS: MEROPENEM 500 MG in IV NS 0.9% 50 ML IV SCH (20:15)
--- NOTE | 2020-10-27 21:00 | NUR ---
RN NOTES PM SHIFT RECEIVED PATIENT FROM AUTUMN, ALERT AND ORIENTED X3, 2LPM VIA NC, [place] SPEAKING ONLY, ABLE TO VERBALIZE NEEDS, NO PAIN AT THIS TIME, RIGHT IJ KIRTI CATH, FOR HD TONIGHT, LEFT ANKLE WITH SPLINT, S/P ANKLE SURGERY, BOYER CATHETER DRAINING WELL, WILL CONTINUE TO MONITOR
--- NOTE | 2020-10-28 06:14 | NUR ---
RN NOTES PM SHIFT ALERT/ORIENTED X3, 2LPM VIA NC, NO COMPLAIN OF PAIN, RIGHT IJ KIRTI CATH, HD 10/28/20, 2.5 L OUTPUT, BOYER CATHETER DRAINING WELL, LABS IN AM, TITRATE O2, HD PER PICKLE PUMPER
[2020-10-28 06:15] LABS: CALCIUM, SERUM 8.4 mg/dL (8.5-10.1); CREATININE 2.4 mg/dL (0.6-1.3); MAGNESIUM 1.8 mg/dL (1.8-2.4); PHOSPHORUS 3.7 mg/dL (2.5-4.9); POTASSIUM 3.5 mmol/L (3.5-5.1)
[2020-10-28 06:20] LABS: BASOPHILS % (AUTO) 0.3 % (0.0-2.0); EOSINOPHILS % (AUTO) 1.3 % (0.0-6.0); HEMATOCRIT 35 % (33-45); LYMPHOCYTES # (AUTO) 0.8 /CMM (0.8-4.8); LYMPHOCYTES % (AUTO) 7.6 % (20.0-44.0); MEAN CORPUSCULAR HGB CONC 34 g/dl (31.0-36.0); MEAN CORPUSCULAR VOLUME 87 fL (82-100); MONOCYTES % (AUTO) 10.3 % (2.0-12.0); NEUTROPHILS # (AUTO) 8.1 /CMM (1.8-8.9); NEUTROPHILS % (AUTO) 80.5 % (43.0-81.0); PLATELET COUNT (AUTO) 271 /CMM (150-450); RED BLOOD CELL COUNT(AUTO) 4.06 MIL/uL (4.0-5.2)
[2020-10-28] MEDS: BLOOD SUGAR DIAGNOSTIC 1 EACH STRIP IN SCH ×4 (06:30→22:17)
--- NOTE | 2020-10-28 07:30 | NUR ---
OPENING NOTE: REPORT OF ELENOR RECEIVED. PATIENT IS ALERT/ORIENTED X3. 2LPM VIA NC, NO COMPLAIN OF PAIN, RIGHT IJ KIRTI CATH, SITE C/D/I. PIV TO LEFT AC IS PATENT WITH SITE C/D/I. BOYER PATENT AND DRAINING CLEAR YELLOW URINE. DRESSING TO LEFT LOWER LEG C/D/I. WILL CONTINUE FOLLOW UP ON LAB RESULTS AND CONTINUE CURRENT POC.
[2020-10-28 08:00] VITALS: BP 108/60
[2020-10-28] MEDS: LEVOTHYROXINE SODIUM 75 MCG TABLET PO SCH (09:41)
[2020-10-28] MEDS: MEROPENEM 500 MG in IV NS 0.9% 50 ML IV SCH ×2 (09:41→20:40)
[2020-10-28] MEDS: SUCRALFATE 1 G TABLET PO SCH ×2 (09:41→16:59)
[2020-10-28] MEDS: PANTOPRAZOLE 40 MG TABLET.DR PO SCH (09:41)
[2020-10-28] MEDS: METOPROLOL SUCCINATE 50 MG TAB.SR.24H PO SCH (09:42)
[2020-10-28] MEDS: CHOLECALCIFEROL 1,000 UNIT TABLET (VIT D3) PO SCH (09:42)
[2020-10-28] MEDS: HEPARIN SODIUM, PORCINE 5000 UNITS/1 ML VIAL SQ SCH ×2 (09:43→20:45)
[2020-10-28] MEDS: ASCORBIC ACID 500 MG TABLET PO SCH (09:46)
[2020-10-28 16:00] VITALS: BP 109/69
--- NOTE | 2020-10-28 18:39 | NUR ---
CLOSING NOTE: PATIENT REMAINS A/O X2-3. CONTINUES ON OXYGEN VIA NASAL CANNULA AT 2 L/MIN. KIRTI CATHETER TO RIGHT IJ REMAINS IN PLACE WITH DRESSING C/D/I. PIV TO THE LEFT AC REMAINS PATENT WITH SITE C/D/I. FOELY HAS BEEN PATENT WITH CLEAR, YELLOW URINE. DRESSING TO LEFT LOWER LEG IS C/D/I. ASSISTED WITH TURNING AND ADL'S NEEDED. WILL HAVE AM LABS. PLAN IS TO HAVE OUTPATIENT CONSULTS FOR ORTHO AND NEPHROLOGY. NEEDS MET AT THIS TIME. WILL ENDORSE TO NIGHT NURSE.
[2020-10-28 20:00] VITALS: BP 117/50
--- NOTE | 2020-10-28 20:00 | NUR ---
MS RN OPENING NOTE RECEIVED PT AWAKE IN BED. A/O X4. PT IS STABLE ON 2 LPM O2 VIA NC. NO SOB NOTED. NO S/S OF RESPIRATORY DISTRESS. PT IS ON BEDREST. PT HAS NO C/O PAIN OR DISCOMFORT AT THIS TIME. IV ACCESS NOTED IN LEFT AC #18 AND KIRTI CATH NOTED IN RIGHT IJ. IV IS INTACT, PATENT, AND FLUSHING WELL. SAFETY MEASURES MAINTAINED. BED IN LOWEST LOCKED POSITION, HOB ELEVATED, SIDE RAILS UP X2. CALL LIGHT AND TABLE WITHIN REACH. WILL CONTINUE WITH PLAN OF CARE. Addendum: 10/28/20 at 2019 by LAURIE ARRINGTON RN MS RN OPENING NOTE RECEIVED PT AWAKE IN BED. A/O X4. PT IS STABLE ON 2 LPM O2 VIA NC. NO SOB NOTED. NO S/S OF RESPIRATORY DISTRESS. PT IS ON BEDREST. PT HAS NO C/O PAIN OR DISCOMFORT AT THIS TIME. IV ACCESS NOTED IN LEFT AC #18 AND KIRTI CATH NOTED IN RIGHT IJ. IV IS INTACT, PATENT, AND FLUSHING WELL. F/C INTACT AND DRAINING CLEAR, YELLOW URINE. SAFETY MEASURES MAINTAINED. BED IN LOWEST LOCKED POSITION, HOB ELEVATED, SIDE RAILS UP X2. CALL LIGHT AND TABLE WITHIN REACH. WILL CONTINUE WITH PLAN OF CARE.
--- NOTE | 2020-10-28 22:17 | NUR ---
BS BS NOTED AT 112. NO REGULAR INSULIN GIVEN PER SLIDING SCALE.
[2020-10-29] MEDS: BLOOD SUGAR DIAGNOSTIC 1 EACH STRIP IN SCH ×4 (06:33→22:31)
--- NOTE | 2020-10-29 06:33 | NUR ---
BS NOTED AT 102. NO INSULIN COVERAGE NEEDED.
--- NOTE | 2020-10-29 06:35 | NUR ---
MS RN CLOSING NOTE PT IS AWAKE IN BED AT THIS TIME. A/O X3, ANDORRAN SPEAKING. PT IS STABLE ON 2 LPM O2 VIA NC. NO SOB NOTED. NO S/S OF RESPIRATORY DISTRESS. PT IS ON BEDREST. PT HAS NO C/O PAIN OR DISCOMFORT AT THIS TIME. IV ACCESS IS INTACT, PATENT, AND FLUSHING WELL. KIRTI CATH NOTED IN RIGHT IJ. SAFETY MEASURES MAINTAINED AT ALL TIMES. BED IN LOWEST LOCKED POSITION, HOB ELEVATED, SIDE RAILS UP X2. CALL LIGHT AND TABLE WITHIN REACH. WILL ENDORSE TO ONCOMING NURSE FOR CONTINUITY OF CARE. Addendum: 10/29/20 at 0642 by LAURIE ARRINGTON RN MS RN CLOSING NOTE PT IS AWAKE IN BED AT THIS TIME. A/O X3, ANDORRAN SPEAKING. PT IS STABLE ON 2 LPM O2 VIA NC. NO SOB NOTED. NO S/S OF RESPIRATORY DISTRESS. PT IS ON BEDREST. PT HAS NO C/O PAIN OR DISCOMFORT AT THIS TIME. IV ACCESS IS INTACT, PATENT, AND FLUSHING WELL. KIRTI CATH NOTED IN RIGHT IJ. F/C INTACT AND DRAINING CLEAR, YELLOW URINE. SAFETY MEASURES MAINTAINED AT ALL TIMES. BED IN LOWEST LOCKED POSITION, HOB ELEVATED, SIDE RAILS UP X2. CALL LIGHT AND TABLE WITHIN REACH. WILL ENDORSE TO ONCOMING NURSE FOR CONTINUITY OF CARE.
[2020-10-29 06:59] LABS: BASOPHILS % (AUTO) 0.2 % (0.0-2.0); EOSINOPHILS % (AUTO) 1.3 % (0.0-6.0); HEMATOCRIT 33 % (33-45); LYMPHOCYTES # (AUTO) 1.3 /CMM (0.8-4.8); LYMPHOCYTES % (AUTO) 14.5 % (20.0-44.0); MEAN CORPUSCULAR HGB CONC 34 g/dl (31.0-36.0); MEAN CORPUSCULAR VOLUME 87 fL (82-100); NEUTROPHILS # (AUTO) 6.7 /CMM (1.8-8.9); PLATELET COUNT (AUTO) 308 /CMM (150-450); RED BLOOD CELL COUNT(AUTO) 3.76 MIL/uL (4.0-5.2); WHITE BLOOD COUNT (AUTO) 9.2 K/uL (4.3-11.0)
--- NOTE | 2020-10-29 07:14 | NUR ---
MS RN OPENING NOTE RECEIVED PT AWAKE IN BED. A/O X4. PATIENT IS BREATHING EVENLY AND NONLABORED, STABLE ON 2 LPM O2 VIA NC. NO SOB NOTED. NO S/S OF RESPIRATORY DISTRESS. PT IS ON BEDREST. PT HAS NO C/O PAIN OR DISCOMFORT AT THIS TIME. IV ACCESS NOTED IN LEFT AC #18 AND KIRTI CATH NOTED IN RIGHT IJ. IV IS INTACT, PATENT, AND FLUSHING WELL. SAFETY MEASURES MAINTAINED. BED IN LOWEST LOCKED POSITION, HOB ELEVATED, SIDE RAILS UP X2. CALL LIGHT WITHIN REACH. WILL CONTINUE TO MONITOR.
[2020-10-29 07:17] LABS: CALCIUM, SERUM 8.4 mg/dL (8.5-10.1); CREATININE 1.7 mg/dL (0.6-1.3); MAGNESIUM 1.7 mg/dL (1.8-2.4); POTASSIUM 3.8 mmol/L (3.5-5.1)
[2020-10-29 08:00] VITALS: BP 126/63
[2020-10-29] MEDS: CHOLECALCIFEROL 1,000 UNIT TABLET (VIT D3) PO SCH (08:10)
[2020-10-29] MEDS: LEVOTHYROXINE SODIUM 75 MCG TABLET PO SCH (08:10)
[2020-10-29] MEDS: ASCORBIC ACID 500 MG TABLET PO SCH (08:10)
[2020-10-29] MEDS: PANTOPRAZOLE 40 MG TABLET.DR PO SCH (08:10)
[2020-10-29] MEDS: HEPARIN SODIUM, PORCINE 5000 UNITS/1 ML VIAL SQ SCH ×2 (08:11→20:15)
[2020-10-29] MEDS: SUCRALFATE 1 G TABLET PO SCH ×2 (08:12→16:14)
[2020-10-29] MEDS: MEROPENEM 500 MG in IV NS 0.9% 50 ML IV SCH ×2 (08:12→20:09)
[2020-10-29] MEDS: METOPROLOL SUCCINATE 50 MG TAB.SR.24H PO SCH (08:12)
[2020-10-29 10:01] LABS: BAND % (MANUAL) 4 % (0.0-5.0); LYMPHOCYTES % (MANUAL) 16 % (16-48); MONOCYTES % (MANUAL) 4 % (0-11.0); NEUTROPHILS % (MANUAL) 76 (42-76)
--- NOTE | 2020-10-29 11:00 | NUR ---
RN NOTE PATIENTS BLOOD SUGAR 114. NO COVERAGE NEEDED
[2020-10-29] MEDS: INSULIN REGULAR, HUMAN 100 UNIT/ML 3 ML VIAL SQ PRN ×2 (11:09→16:44)
[2020-10-29] MEDS ORDERED: Magnesium 1GM/D5W 100ML PREMIX 100 ML IV SCH (11:30)
[2020-10-29 16:00] VITALS: BP 142/72
--- NOTE | 2020-10-29 17:04 | NUR ---
RN NOTE BLOOD SUGAR CHECK WAS 122 NO INSULIN COVERAGE NEEDED. PATIENT REFUSED COMPLETE LINEN AND BED CHANGE. PATIENT JUST WANTED A NEW BLANKET. PATIENT REPOSITIONED FOR COMFORT. WILL CONTINUE TO MONITOR
[2020-10-29 17:06] LABS: *ANCANTIMYELOPEROXIDASE (MPO) <9.0 U/mL (0.0-9.0); *ANCANTIPROTEINASE 3 (PR-3) AB <3.5 U/mL (0.0-3.5)
--- NOTE | 2020-10-29 18:38 | NUR ---
MS RN CLOSING NOTE PT IS RESTING IN BED. A/O X4. PATIENT IS BREATHING EVENLY AND NONLABORED, STABLE ON 2 LPM O2 VIA NC. NO SOB NOTED. NO S/S OF RESPIRATORY DISTRESS. PT IS ON BEDREST. PT HAS NO C/O PAIN OR DISCOMFORT AT THIS TIME. IV ACCESS NOTED IN LEFT AC #18 AND KIRTI CATH NOTED IN RIGHT IJ. IV IS INTACT, PATENT, AND FLUSHING WELL. MEDICATION WAS GIVEN THROUGHOUT SHIFT ORDERED. SAFETY MEASURES MAINTAINED. BED IN LOWEST LOCKED POSITION, HOB ELEVATED, SIDE RAILS UP X2. CALL LIGHT WITHIN REACH. WILL ENDORSE TO ONCOMING SHIFT
--- NOTE | 2020-10-29 20:00 | NUR ---
MS RN OPENING NOTE RECEIVED PT AWAKE IN BED. A/O X4. PT IS STABLE ON 2 LPM O2 VIA NC. NO SOB NOTED. NO S/S OF RESPIRATORY DISTRESS. PT IS ON BEDREST. PT HAS NO C/O PAIN OR DISCOMFORT AT THIS TIME. IV ACCESS NOTED IN LEFT AC #18 AND KIRTI CATH NOTED IN RIGHT IJ. IV IS INTACT, PATENT, AND FLUSHING WELL. F/C INTACT AND DRAINING CLEAR, YELLOW URINE. SAFETY MEASURES MAINTAINED. BED IN LOWEST LOCKED POSITION, HOB ELEVATED, SIDE RAILS UP X2. CALL LIGHT AND TABLE WITHIN REACH. WILL CONTINUE WITH PLAN OF CARE.
[2020-10-29 21:00] VITALS: BP 115/74
[2020-10-29] MEDS: ACETAMINOPHEN 325 MG TABLET PO PRN (23:55)
[2020-10-30 06:09] LABS: BASOPHILS # (AUTO) 0.1 /CMM (0.0-0.2); BASOPHILS % (AUTO) 0.7 % (0.0-2.0); EOSINOPHILS % (AUTO) 2.3 % (0.0-6.0); HEMATOCRIT 31 % (33-45); HEMOGLOBIN 10.3 g/dL (11.5-14.8); LYMPHOCYTES # (AUTO) 1.5 /CMM (0.8-4.8); LYMPHOCYTES % (AUTO) 16.4 % (20.0-44.0); MEAN CORPUSCULAR HGB CONC 33 g/dl (31.0-36.0); MEAN CORPUSCULAR VOLUME 89 fL (82-100); MONOCYTES % (AUTO) 11.2 % (2.0-12.0); NEUTROPHILS # (AUTO) 6.2 /CMM (1.8-8.9); NEUTROPHILS % (AUTO) 69.4 % (43.0-81.0); PLATELET COUNT (AUTO) 365 /CMM (150-450); RED BLOOD CELL COUNT(AUTO) 3.49 MIL/uL (4.0-5.2)
--- NOTE | 2020-10-30 06:40 | NUR ---
MS RN CLOSING NOTE PT IS AWAKE IN BED AT THIS TIME. A/O X4. PT IS STABLE ON 2 LPM O2 VIA NC. NO SOB NOTED. NO S/S OF RESPIRATORY DISTRESS. PT IS ON BEDREST. PT HAS NO C/O PAIN OR DISCOMFORT AT THIS TIME. IV ACCESS IS INTACT, PATENT, AND FLUSHING WELL. F/C INTACT AND DRAINING CLEAR, YELLOW URINE. PAIN MANAGEMENT ADMINISTERED PER ORDER. ALL NEEDS HAVE BEEN MET. SAFETY MEASURES MAINTAINED AT THIS TIME. BED IN LOWEST LOCKED POSITION, HOB ELEVATED, SIDE RAILS UP X2. CALL LIGHT AND TABLE WITHIN REACH. WILL ENDORSE TO ONCOMING NURSE FOR CONTINUITY OF CARE.
[2020-10-30] MEDS: BLOOD SUGAR DIAGNOSTIC 1 EACH STRIP IN SCH ×4 (06:42→21:41)
[2020-10-30 07:10] LABS: CALCIUM, SERUM 8.5 mg/dL (8.5-10.1); CREATININE 1.6 mg/dL (0.6-1.3); POTASSIUM 3.8 mmol/L (3.5-5.1)
[2020-10-30 08:00] VITALS: BP 143/75
[2020-10-30] MEDS: MEROPENEM 500 MG in IV NS 0.9% 50 ML IV SCH ×2 (08:16→21:40)
[2020-10-30] MEDS: METOPROLOL SUCCINATE 50 MG TAB.SR.24H PO SCH (08:17)
[2020-10-30] MEDS: PANTOPRAZOLE 40 MG TABLET.DR PO SCH (08:17)
[2020-10-30] MEDS: LEVOTHYROXINE SODIUM 75 MCG TABLET PO SCH (08:17)
[2020-10-30] MEDS: ASCORBIC ACID 500 MG TABLET PO SCH (08:17)
[2020-10-30] MEDS: SUCRALFATE 1 G TABLET PO SCH ×2 (08:17→16:20)
[2020-10-30] MEDS: CHOLECALCIFEROL 1,000 UNIT TABLET (VIT D3) PO SCH (08:17)
[2020-10-30] MEDS: NEPRO VAN 237 ML CAN PO SCH (08:18)
[2020-10-30] MEDS: HEPARIN SODIUM, PORCINE 5000 UNITS/1 ML VIAL SQ SCH ×2 (08:18→21:41)
[2020-10-30 09:56] LABS: ABG OXYGEN SATURATION 97.4 % (92.0-98.5); ABG PCO2 40.5 mmHg (35.0-45.0); ABG PH 7.459 (7.350-7.450); ABG PO2 115.6 mmHg (75.0-100.0); AaDO2 65.2 mmHg; COHb 0.7 % (0.5-1.5); MetHb 0.5 % (0.0-1.5); O2Hb 96.2 % (94.0-97.0); SITE, ABG Right Radial; VENT MODE, BG nasal cannula(sitting up)
--- NOTE | 2020-10-30 11:00 | NUR ---
RN NOTE PATIENTS BLOOD SUGAR WAS 113. NO INSULIN COVERAGE NEEDED. WILL CONTINUE TO MONITOR
[2020-10-30] MEDS: INSULIN REGULAR, HUMAN 100 UNIT/ML 3 ML VIAL SQ PRN ×3 (11:20→21:43)
[2020-10-30 12:49] LABS: BAND % (MANUAL) 4 % (0.0-5.0); EOSINOPHILS % (MANUAL) 2 % (0-4); LYMPHOCYTES % (MANUAL) 25 % (16-48); METAMYELOCYTES % 1 % (0-0); MONOCYTES % (MANUAL) 6 % (0-11.0); MYELOCYTES % 1 % (0-0); NEUTROPHILS % (MANUAL) 61 (42-76)
[2020-10-30 16:00] VITALS: BP_SYST 107; BP_SYST 121; BP_DIAS 50; BP_DIAS 90
--- NOTE | 2020-10-30 19:52 | NUR ---
MS RN OPENING NOTE PATIENT A/OX4; ABLE TO MAKE NEEDS KNOWN. ON ROOM AIR TOLERATING WELL WITH NO SOB. RIJ QUITON CATH; INTACT. LAC #18G S/L PATENT AND INTACT. DENIES N/V/D. F/C DRAINING CLEAR YELLOW URINE; PATENT AND INTACT. SAFETY MEASURES IN PLACE: BED IN LOWEST LOCKED POSITION, SIDE RAILS UPX2, CALL LIGHT WITHIN EASY REACH, BED ALARMS ON. PATIENT IN STABLE CONDITION; WILL CONTINUE PLAN OF CARE.
[2020-10-30 20:00] VITALS: BP 115/60
[2020-10-30] MEDS: ACETAMINOPHEN 325 MG TABLET PO PRN (21:52)
--- NOTE | 2020-10-30 21:52 | NUR ---
MS RN NOTE - PAIN PATIENT C/O 3/10 L FOOT PAIN. ADMINISTERED TYLENOL ORDERED. WILL REASSESS PATIENT'S PAIN IN 30 MINUTES.
--- NOTE | 2020-10-31 06:14 | NUR ---
MS RN CLOSING NOTE PATIENT A/OX4; ABLE TO MAKE NEEDS KNOWN. ON ROOM AIR TOLERATING WELL WITH NO SOB. RIJ HD QUITON CATH; INTACT. LAC #18G S/L PATENT AND INTACT. DENIES N/V/D. F/C DRAINING CLEAR YELLOW URINE; PATENT AND INTACT. LEFT FOOT CAST KEPT C/D/I AND ELEVATED. SAFETY MEASURES IN PLACE: BED IN LOWEST LOCKED POSITION, SIDE RAILS UPX2, CALL LIGHT WITHIN EASY REACH, BED ALARMS ON. PATIENT IN STABLE CONDITION; WILL ENDORSE PLAN OF CARE TO ONCOMING MORNING RN.
[2020-10-31] MEDS: BLOOD SUGAR DIAGNOSTIC 1 EACH STRIP IN SCH ×4 (06:32→22:59)
[2020-10-31] MEDS: PANTOPRAZOLE 40 MG TABLET.DR PO SCH (06:36)
[2020-10-31] MEDS: LEVOTHYROXINE SODIUM 75 MCG TABLET PO SCH (06:36)
[2020-10-31] MEDS: SUCRALFATE 1 G TABLET PO SCH ×2 (06:36→17:35)
[2020-10-31 06:48] LABS: BASOPHILS % (AUTO) 0.5 % (0.0-2.0); EOSINOPHILS % (AUTO) 2.4 % (0.0-6.0); HEMATOCRIT 31 % (33-45); HEMOGLOBIN 10.2 g/dL (11.5-14.8); LYMPHOCYTES # (AUTO) 1.9 /CMM (0.8-4.8); LYMPHOCYTES % (AUTO) 19.2 % (20.0-44.0); MEAN CORPUSCULAR HGB CONC 33 g/dl (31.0-36.0); MEAN CORPUSCULAR VOLUME 88 fL (82-100); MONOCYTES % (AUTO) 9.9 % (2.0-12.0); NEUTROPHILS # (AUTO) 6.7 /CMM (1.8-8.9); PLATELET COUNT (AUTO) 345 /CMM (150-450); RED BLOOD CELL COUNT(AUTO) 3.51 MIL/uL (4.0-5.2); WHITE BLOOD COUNT (AUTO) 9.8 K/uL (4.3-11.0)
--- NOTE | 2020-10-31 07:10 | NUR ---
MS RN OPENING NOTE RECEIVED PATIENT IN BED. A/O X3. MALTESE SPEAKING. ON ROOM AIR, TOLERATING WELL. NO SOB NOTED. IN NO APPARENT DISTRESS. IV ACCESS ON L AC #18 G, INTACT. R IJ KIRTI CATH C/D/I. BOYER CATHETER IN PLACE, DRAINING YELLOW URINE. LEFT FOOT ON CAST C/D/I, KEPT ELEVATED. SAFETY MEASURES MAINTAINED. BED IN LOWEST POSITION, BRAKES LOCKED. SIDE RAILS UP X4. CALL LIGHT WITHIN REACH. WILL CONTINUE PLAN OF CARE.
[2020-10-31 07:29] LABS: CALCIUM, SERUM 8.3 mg/dL (8.5-10.1); CREATININE 1.4 mg/dL (0.6-1.3); POTASSIUM 3.6 mmol/L (3.5-5.1)
[2020-10-31 08:00] VITALS: BP 156/74
[2020-10-31] MEDS: ASCORBIC ACID 500 MG TABLET PO SCH (08:44)
[2020-10-31] MEDS: METOPROLOL SUCCINATE 50 MG TAB.SR.24H PO SCH (08:44)
[2020-10-31] MEDS: CHOLECALCIFEROL 1,000 UNIT TABLET (VIT D3) PO SCH (08:44)
[2020-10-31] MEDS: HEPARIN SODIUM, PORCINE 5000 UNITS/1 ML VIAL SQ SCH (08:46)
[2020-10-31] MEDS: MEROPENEM 500 MG in IV NS 0.9% 50 ML IV SCH ×2 (08:56→21:31)
[2020-10-31] MEDS: NEPRO VAN 237 ML CAN PO SCH (08:57)
[2020-10-31] MEDS ORDERED: MERO500P IV (15:23)
[2020-10-31 15:58] VITALS: BP 152/76
[2020-10-31] MEDS: INSULIN REGULAR, HUMAN 100 UNIT/ML 3 ML VIAL SQ PRN (17:38)
--- NOTE | 2020-10-31 18:13 | NUR ---
MS RN CLOSING NOTE PATIENT RESTING IN BED. A/O X3. ON ROOM AIR, SATURATING WELL AT 95%. NO SOB NOTED. IN NO APPARENT DISTRESS. IV ACCESS ON L AC #18 G, INTACT. R IJ KIRTI CATH REMOVED BY HD NURSE. BOYER CATHETER IN PLACE, DRAINING YELLOW URINE. LEFT FOOT ON CAST C/D/I, KEPT ELEVATED. ALL DUE MEDS GIVEN ORDERED. ALL NEEDS HAVE BEEN MET AND ATTENDED. SAFETY MEASURES MAINTAINED. BED IN LOWEST POSITION, BRAKES LOCKED. SIDE RAILS UP X4. CALL LIGHT WITHIN REACH. WILL ENDORSE CONTINUITY OF CARE TO ONCOMING SHIFT.
--- NOTE | 2020-10-31 19:30 | NUR ---
RN OPENING NOTE PATIENT IN BED EYES CLOSED, EASILY AROUSED, A/O X 4. PATIENT ABLE TO MAKE NEEDS KNOWN, TOLERATING ROOM AIR, BREATHING EVEN AND UNLABORED. NO COMPLAINS OF PAIN OR DISCOMFORT AT THIS TIME. LEFT FOOT CAST CLEAN, DRY AND INTACT. L AC IV ACCESS INTACT. BOYER CATHETER PATENT AND INTACT, DRAINING YELLOW CLEAR URINE. SAFETY MEASURES IN PLACE: BED IN LOCKED AND LOWEST POSITION, SIDE RAILS UP, CALL LIGHT WITHIN REACH. WILL MONITOR PATIENT CLOSELY.
[2020-10-31 20:00] VITALS: BP 140/75
[2020-11-01] MEDS: BLOOD SUGAR DIAGNOSTIC 1 EACH STRIP IN SCH ×2 (06:31→11:13)
--- NOTE | 2020-11-01 07:11 | NUR ---
MS RN OPENING NOTE RECEIVED PT AWAKE IN BED. A/O X4. PATIENT IS BREATHING EVENLY AND NONLABORED, STABLE ON ROOM AIR. NO SOB NOTED. NO S/S OF RESPIRATORY DISTRESS. PT IS ON BEDREST. LEFT CAST NOTED TO BE CLEAN AND DRY. PT HAS NO C/O PAIN OR DISCOMFORT AT THIS TIME. IV ACCESS NOTED IN LEFT AC #18, IV IS INTACT, PATENT, AND FLUSHING WELL. SAFETY MEASURES MAINTAINED. BED IN LOWEST LOCKED POSITION, HOB ELEVATED, SIDE RAILS UP X2. CALL LIGHT WITHIN REACH. WILL CONTINUE TO MONITOR.
--- NOTE | 2020-11-01 07:15 | NUR ---
RN CLOSING NOTE PATIENT IN BED EYES CLOSED, EASILY AROUSED, A/O X 4. NOT IN ANY APPARENT DISTRESS, BREATHING EVEN AND UNLABORED. NO COMPLAINS OF PAIN OR DISCOMFORT AT THIS TIME. LEFT FOOT CAST CLEAN, DRY AND INTACT, MAINTAINED ELEVATED. L AC IV ACCESS INTACT. BOYER CATHETER PATENT AND INTACT, DRAINING YELLOW CLEAR URINE. SAFETY MEASURES MAINTAINED. ENDORSED TO DAY SHIFT NURSE FOR ANTONIA.
[2020-11-01 08:00] VITALS: BP 159/78
[2020-11-01] MEDS: SUCRALFATE 1 G TABLET PO SCH ×2 (08:16→15:49)
[2020-11-01] MEDS: NEPRO VAN 237 ML CAN PO SCH (08:17)
[2020-11-01] MEDS: LEVOTHYROXINE SODIUM 75 MCG TABLET PO SCH (08:17)
[2020-11-01] MEDS: PANTOPRAZOLE 40 MG TABLET.DR PO SCH (08:17)
[2020-11-01] MEDS: MEROPENEM 500 MG in IV NS 0.9% 50 ML IV SCH (08:17)
[2020-11-01] MEDS: ASCORBIC ACID 500 MG TABLET PO SCH (08:17)
[2020-11-01] MEDS: METOPROLOL SUCCINATE 50 MG TAB.SR.24H PO SCH (08:17)
[2020-11-01] MEDS: CHOLECALCIFEROL 1,000 UNIT TABLET (VIT D3) PO SCH (08:17)
[2020-11-01] MEDS: INSULIN REGULAR, HUMAN 100 UNIT/ML 3 ML VIAL SQ PRN (11:13)
--- NOTE | 2020-11-01 13:55 | NUR ---
RN NOTE REMOVED BOYER CATHETER. PATIENT TOLERATED PROCEDURE WELL. 500 CC OF URINE WAS ALSO IN TH BAG. WILL MONITOR FOR URINARY RETENTION
[2020-11-01 14:08] LABS: *ANCA ATYPICAL p-ANCA <1:20 titer (Neg:<1:20); *ANCA CYTOPLASMIC (C-ANCA) <1:20 titer (Neg:<1:20); *ANCA PERINUCLEAR (P-ANCA) <1:20 titer (Neg:<1:20)
--- NOTE | 2020-11-01 15:50 | NUR ---
RN NOTES OFFERED PATIENTS MEDICATION SUCRALFATE. PATIENT REFUSED MEDICATION. EXPLAINED RISK AND BENEFITS OF MEDICATION. PATIENT CONTINUED TO REFUSE. WILL CONTINUE TO MONITOR
[2020-11-01 16:00] VITALS: BP 131/64
--- NOTE | 2020-11-01 17:55 | NUR ---
FISH TENDER NOTE RECEIVED ORDER FOR DISCHARGE. PT IS A/O X4. PATIENT IS BREATHING EVENLY AND NONLABORED, STABLE ON ROOM AIR. NO SOB NOTED. NO S/S OF RESPIRATORY DISTRESS. PT IS ON BEDREST. LEFT CAST NOTED TO BE CLEAN AND DRY. PT HAS NO C/O PAIN OR DISCOMFORT AT THIS TIME. DISCHARGE INSTRUCTIONS WERE GIVEN BOTH ORALLY AND WRITTEN. PATIENT VERBALIZED UNDERSTANDING. BOYER CATHETER WAS REMOVED EARLIER TODAY AND PATIENT VOIDED X 1. IV AND ID BAND WAS REMOVED. 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 PATIENT LEFT IN STABLE CONDITION.
== END 2020-11-01 17:55 | disposition home health service (06) | DRG 917 ==
LOC: ER 09:50 → MEDSG1 13:12 → MED 10-27 19:55
PROVIDERS: ATTEND Student in an Organized Health Care Education/Training Program
PROC: 05HM33Z Insertion of Infusion Device into Right Internal Jugular Vein, Percutaneous Approach (ICD-10-PCS; principal; 2020-10-27)
PROC: B543ZZA Ultrasonography of Right Jugular Veins, Guidance (ICD-10-PCS; 2020-10-27)
PROC: 5A1D70Z Performance of Urinary Filtration, Intermittent, Less than 6 Hours Per Day (ICD-10-PCS; 2020-10-28)
DX: T40.2X1A Poisoning by other opioids, accidental (unintentional), initial encounter (principal); A41.9 Sepsis, unspecified organism; N17.0 Acute kidney failure with tubular necrosis; J69.0 Pneumonitis due to inhalation of food and vomit; G92 Toxic encephalopathy; N39.0 Urinary tract infection, site not specified; M62.82 Rhabdomyolysis; Z16.12 Extended spectrum beta lactamase (ESBL) resistance; Z68.41 Body mass index [BMI] 40.0-44.9, adult; J98.11 Atelectasis; E03.9 Hypothyroidism, unspecified; E11.22 Type 2 diabetes mellitus with diabetic chronic kidney disease; Z20.822 Contact with and (suspected) exposure to COVID-19; N18.9 Chronic kidney disease, unspecified; Z87.442 Personal history of urinary calculi; I12.9 Hypertensive chronic kidney disease with stage 1 through stage 4 chronic kidney disease, or unspecified chronic kidney disease; E66.01 Morbid (severe) obesity due to excess calories; K80.20 Calculus of gallbladder without cholecystitis without obstruction; M16.11 Unilateral primary osteoarthritis, right hip; Y92.009 Unspecified place in unspecified non-institutional (private) residence as the place of occurrence of the external cause; Z98.890 Other specified postprocedural states; B96.20 Unspecified Escherichia coli [E. coli] as the cause of diseases classified elsewhere; Z79.84 Long term (current) use of oral hypoglycemic drugs
CPT/HCPCS: 36415; 36600; 71045-TC; 76770-TC; 80048-TC; 80053-TC; 80061-TC; 80076-TC; 81001; 82550-TC; 82553; 82570-TC; 82803-TC; 82962-TC; 83520; 83735-TC; 83970; 84100-TC; 84155; 84155-TC; 84165; 84300-TC; 84443-TC; 85025-TC; 85652-TC; 86225; 86235; 86256; 86706; 86803; 87081-TC; 87086-TC; 87186-TC; 87340; 90935-TC; 94799-TC; 97110-TC; 97112-TC; 97530-TC; 97535-TC; C9803; G0378; G0480; J0696; J1644; J1815; J2185; J3475; J3490; J7030; J7040; J7050; J7060

== ENCOUNTER 2022-04-20 18:36 | Emergency (ER) | payer MEDICARE, OTHER ==
[~2022-04-20] VITALS: Ht 152.4 cm; Wt 115.2 kg
[~2022-04-20 18:36] MED LIST: ACET500C4 PO; ALBU8.5H8 IH; ASCO-352 PO; AZEL137S7; CHOL100062 PO; DEXL60CA3 PO; FESO4TAB PO; FLUT16SP16; LEVO75TA7 PO; LISI40TA13 PO; MERO500P IV; METO-357 PO; NALO4SPR; OXYC10TA49 PO; SUCR1TAB PO; ZOLP10TA2 PO
--- NOTE | 2022-04-20 18:49 | NUR ---
DR NESBITT AT BEDSIDE
[2022-04-20] MEDS ORDERED: IV NS 0.9% 500 ML BAG IV ONE (19:00)
--- NOTE | 2022-04-20 19:12 | NUR ---
RAPID COVID SWAB DONE AND SENT TO LAB
--- NOTE | 2022-04-20 19:17 | NUR ---
MOVE SHEET SUBMITTED.
[2022-04-20 19:29] VITALS: BP 146/86
--- NOTE | 2022-04-20 19:29 | NUR ---
RECEIVED PT IN ER ROOM 4. PT IS RESTING COMFORTABLY IN BED. ALERT AND ORIENTED FROM HOME. CONNECTED TO POX AND HEART MONITOR. VITAL SIGNS WITHIN LIMITS. WILL CONTINUE TO MONITOR
--- NOTE | 2022-04-20 19:30 | NUR ---
BLOOD AND CULTURES SENT TO LAB
--- NOTE | 2022-04-20 19:30 | NUR ---
URINE COLLECTED AND SENT TO LAB
[2022-04-20 19:46] LABS: CALCIUM, SERUM 8.7 mg/dL (8.5-10.1); CARBON DIOXIDE 28 mmol/L (21-32); CHLORIDE 104 mmol/L (98-107); CREATININE 1.1 mg/dL (0.6-1.3); GLUCOSE 146 mg/dL (74-106); POTASSIUM 4.5 mmol/L (3.5-5.1); SODIUM SERUM 137 mmol/L (136-145); UREA NITROGEN, BLOOD 17 mg/dL (7-18)
[2022-04-20 19:52] LABS: ALANINE AMINOTRANSFERASE 23 U/L (12-78); ALBUMIN 3.5 g/dL (3.4-5.0); ALKALINE PHOSPHATASE 109 U/L (46-116); ASPARTATE AMINOTRANSFERASE 15 U/L (15-37); BILIRUBIN,DIRECT 0.1 mg/dL (0.0-0.2); BILIRUBIN,TOTAL 0.2 mg/dL (0.2-1.0); TOTAL PROTEIN, SERUM 7.2 g/dL (6.4-8.2)
--- NOTE | 2022-04-20 20:08 | NUR ---
XRAY AT BEDSIDE
[2022-04-20 20:16] LABS: BASOPHILS # (AUTO) 0.1 K/uL (0.0-0.2); BASOPHILS % (AUTO) 1.2 % (0.0-2.0); EOSINOPHILS % (AUTO) 2.8 % (0.0-6.0); HEMATOCRIT 42 % (33-45); LYMPHOCYTES # (AUTO) 1.4 K/uL (0.8-4.8); LYMPHOCYTES % (AUTO) 18.7 % (20.0-44.0); MEAN CORPUSCULAR HGB CONC 33 g/dl (31.0-36.0); MEAN CORPUSCULAR VOLUME 86 fL (82-100); MONOCYTES # (AUTO) 0.5 K/uL (0.1-1.30); NEUTROPHILS # (AUTO) 5.3 K/uL (1.8-8.9); NEUTROPHILS % (AUTO) 70.3 % (43.0-81.0); PLATELET COUNT (AUTO) 241 K/uL (150-450); WHITE BLOOD COUNT (AUTO) 7.6 K/uL (4.3-11.0)
[2022-04-20 20:17] LABS: BILIRUBIN,URINE NEGATIVE (NEGATIVE); COLOR,URINE YELLOW (YELLOW); LEUKOCYTE ESTERASE ,URINE NEGATIVE (NEGATIVE); NITRITE, URINE NEGATIVE (NEGATIVE); PROTEIN,URINE NEGATIVE (NEGATIVE); UGLUCOSE NEGATIVE (NEGATIVE); UROBILINOGEN,URINE 0.2 EU/dL (0.2)
[2022-04-20 20:21] LABS: BACTERIA,URINE None seen /HPF (None Seen); WBC,URINE 0-2 /HPF (0-3)
--- NOTE | 2022-04-20 20:56 | NUR ---
PT GOING TO 309-2
--- NOTE | 2022-04-20 21:10 | NUR ---
DR NESBITT AT BED SIDE SPEAKING TO THE FAMILY WHO WANTS TO LEAVE AMA
--- NOTE | 2022-04-20 21:27 | NUR ---
Patient does not wish to proceed with medical care recommended by Dr. Bella. Patient given information related to possible complications, up to and including , which could occur as a result of leaving the hospital at this time. Patient verbalizes understanding of risks involved due to leaving against medical advice. Patient has signed AMA form.
== END 2022-04-20 23:09 | disposition left against medical advice (07) ==
LOC: ER 19:08
DX: R42 Dizziness and giddiness (principal); S52.592A Other fractures of lower end of left radius, initial encounter for closed fracture; W01.0XXA Fall on same level from slipping, tripping and stumbling without subsequent striking against object, initial encounter; Y92.019 Unspecified place in single-family (private) house as the place of occurrence of the external cause; Z20.822 Contact with and (suspected) exposure to COVID-19; Z53.29 Procedure and treatment not carried out because of patient's decision for other reasons
CPT/HCPCS: 99285; 70450; 71045; 87426; 93005; 73110; 84145; 85025; 80048; 87086; 83605; 80076; 81001; 36415; 84484; 85730; 87040 ×2; 87081; J7040; C9803